=== PATIENT | male | born 1985 | race Caucasian/White ===

== ENCOUNTER 2021-06-29 22:34 | Emergency (ER) | payer OTHER ==
[~2021-06-29] VITALS: Ht 177.8 cm; Wt 79.4 kg
[2021-06-29 22:34] VITALS: BP_SYST 157
--- NOTE | 2021-06-29 23:07 | NUR ---
Placed in room 08 . Placed on cardiac monitor technician, blood pressure machine and pulse oximeter. To gown for exam. Side rails up. Report given to HEBERT Caballero
--- NOTE | 2021-06-29 23:30 | NUR ---
Dr. Tan present in room.
[2021-06-29] MEDS ORDERED: MAG HYDROX/AL HYDROX/SIMETH 30 ML, LIDOCAINE VISCOUS 2% 15ML (PO) 15 ML, DICYCLOMINE HC... PO ONE ×3 (23:45)
[2021-06-29] MEDS ORDERED: PANTOPRAZOLE SODIUM 40 MG/VIAL (PROTONIX) IV ONE (23:45)
[2021-06-29] MEDS ORDERED: NACL 0.9% 1,000 ML IV ONE (23:45)
[2021-06-29] MEDS ORDERED: MORPHINE SULFATE 10 MG/ML VIAL IVP ONE (23:45)
[2021-06-29] MEDS ORDERED: ONDANSETRON HCL 4 MG/2 ML VIAL IVP ONE ×2 (23:45)
[2021-06-30 00:19] LABS: CREATININE 1.45 mg/dL (0.55-1.30); POTASSIUM 4.2 mmol/L (3.5-5.1)
[2021-06-30 00:24] LABS: ALBUMIN 4.7 g/dL (3.4-4.8); TOTAL BILIRUBIN 0.7 mg/dL (0.0-1.0)
[2021-06-30 00:29] LABS: CORRECTED WHITE BLOOD COUNT 6.7 K/uL (4.5-11.0); WHITE BLOOD COUNT (AUTO) 6.7 K/uL (4.8-10.8)
[2021-06-30 00:30] LABS: HEMOGLOBIN 15.1 g/dL (14.0-18.0); MEAN CORPUSCULAR HEMOGLOBIN 29 pg (27-31); MEAN CORPUSCULAR HGB CONC 34 % (32-36); MEAN CORPUSCULAR VOLUME 84 fL (79.0-98.0); PLATELET COUNT (AUTO) 340 K/uL (130-430); RED BLOOD CELL COUNT(AUTO) 5.22 MIL/uL (4.2-6.2); RED CELL DISTRIBUTION WIDTH 12.8 % (9.0-15.0)
[2021-06-30 00:31] LABS: BASOPHILS % (AUTO) 1.9 % (0.0-2.0); EOSINOPHILS % (AUTO) 0.3 % (0.0-4.0); LYMPHOCYTES % (AUTO) 13.4 % (20.5-51.5); MONOCYTES % (AUTO) 3.6 % (1.7-9.3); NEUTROPHILS % (AUTO) 80.8 % (40.0-70.0)
[2021-06-30 00:32] LABS: NEUTROPHILS # (AUTO) 5.4 K/uL (1.8-7.7)
[2021-06-30 00:33] LABS: BASOPHILS # (AUTO) 0.1 K/uL (0.0-0.2); LYMPHOCYTES # (AUTO) 0.9 K/uL (1.0-5.5); MONOCYTES # (AUTO) 0.2 K/uL (0.0-1.0)
[2021-06-30 01:30] VITALS: BP_SYST 129
[2021-06-30] MEDS ORDERED: METO-290 PO (02:05)
[2021-06-30] MEDS ORDERED: ANT30 PO (02:05)
[2021-06-30] MEDS ORDERED: DICY10CA13 PO (02:05)
[2021-06-30] MEDS ORDERED: PRO40 PO (02:05)
[2021-06-30] MEDS ORDERED: POLY17PO4 PO (02:05)
--- NOTE | 2021-06-30 02:10 | NUR ---
Patient given written and verbal discharge instructions and verbalizes understanding. ER MD discussed with patient the results and treatment provided. Patient in stable condition. ID arm band removed. IV catheter removed intact and dressing applied, no active bleeding. Rx of dicyclomine, mylanta plus, metoclopramide, polyethylene, and protonix given. Patient educated on pain management and to follow up with PMD. Opportunity for questions provided and answered. Medication side effect fact sheet provided.
== END 2021-06-30 02:10 | disposition home or self-care (01) ==
LOC: SED 22:34
DX: R10.10 Upper abdominal pain, unspecified (principal); Z79.899 Other long term (current) drug therapy
CPT/HCPCS: 36415; 74021; 80053; 83690; 85025; 96361; 96374; 96375; 99285; C9113; J2001; J2270; J2405; J7030

== ENCOUNTER 2022-07-19 21:29 | Emergency (ER) | payer BC, OTHER ==
[~2022-07-19] VITALS: Ht 177.8 cm; Wt 95.3 kg
[~2022-07-19 21:29] MED LIST: ANT30 PO; DICY10CA13 PO; METO-290 PO; POLY17PO4 PO; PRO40 PO
[2022-07-19 21:56] VITALS: BP_SYST 155
--- NOTE | 2022-07-19 21:56 | NUR ---
Patient to ER bed 4 to gown for evaluation. Side rails up. Report given to MIKO AMBROSIO(LJ).
[2022-07-19 22:24] LABS: BASOPHILS # (AUTO) 0.1 K/uL (0.0-0.2); BASOPHILS % (AUTO) 0.4 % (0.0-2.0); HEMATOCRIT 49.2 % (36-54); HEMOGLOBIN 16.6 g/dL (14.0-18.0); LYMPHOCYTES % (AUTO) 10.2 % (20.5-51.5); MEAN CORPUSCULAR HEMOGLOBIN 29 pg (27-31); MEAN CORPUSCULAR HGB CONC 34 % (32-36); MEAN CORPUSCULAR VOLUME 86 fL (79.0-98.0); MONOCYTES # (AUTO) 0.9 K/uL (0.0-1.0); MONOCYTES % (AUTO) 4.5 % (1.7-9.3); NEUTROPHILS # (AUTO) 16.2 K/uL (1.8-7.7); NEUTROPHILS % (AUTO) 84.9 % (40.0-70.0); PLATELET COUNT (AUTO) 424 K/uL (130-430); RED BLOOD CELL COUNT(AUTO) 5.74 MIL/uL (4.2-6.2); RED CELL DISTRIBUTION WIDTH 13.4 % (9.0-15.0); WHITE BLOOD COUNT (AUTO) 19.1 K/uL (4.8-10.8)
[2022-07-19 22:28] LABS: CALCIUM 10.9 mg/dL (8.4-11.0); CREATININE 1.59 mg/dL (0.55-1.30)
--- NOTE | 2022-07-19 22:30 | NUR ---
PT MEDICATED PER ORDER. HE STATES THIS IS A PROBLEM HE'S HAD BEFORE AND ONLY MOPHINE CAN HELP RESOLVE IT. INFORMED. NO NEW ORDERS AT THIS TIME.
[2022-07-19 22:32] LABS: ALBUMIN 5.3 g/dL (3.4-4.8); TOTAL BILIRUBIN 1.1 mg/dL (0.0-1.0)
[2022-07-19] MEDS ORDERED: NACL 0.9% 1,000 ML IV ONE (22:45)
[2022-07-19] MEDS ORDERED: ONDANSETRON HCL 4 MG/2 ML VIAL IVP ONE (22:45)
[2022-07-19] MEDS ORDERED: HALOPERIDOL LACTATE 5 MG/ML VIAL IVP ONE (22:45)
[2022-07-19 23:02] VITALS: BP_SYST 152
--- NOTE | 2022-07-19 23:27 | NUR ---
PT STATES HE WANTS TO LEAVE AMA. INFORMED AND AMA FORM SIGNED.
[2022-07-19 23:52] LABS: BILIRUBIN,URINE 1+ (NEGATIVE); BLOOD, URINE NEGATIVE (NEGATIVE); CLARITY/URINE CLOUDY (CLEAR); COLOR,URINE YELLOW (YELLOW); GLUCOSE,URINE NEGATIVE (NEGATIVE); KETONES,URINE TRACE (NEGATIVE); LEUKOCYTE ESTERASE ,URINE NEGATIVE (NEGATIVE); NITRITE, URINE NEGATIVE (NEGATIVE); PH,URINE 5.5 (5.0-8.0); PROTEIN URINE 3+ (NEGATIVE)
[2022-07-19 23:59] LABS: BACTERIA,URINE None Seen /HPF (None Seen); RBC,URINE 0-3 /HPF (0-3); WBC,URINE 0-3 /HPF (0-3)
--- NOTE | 2022-07-19 23:59 | NUR ---
Patient does not wish to proceed with medical care recommended by . Patient given information related to possible complications, up to and including , which could occur as a result of leaving hospital at this time. Patient verbalizes understanding of risks involved leaving against medical advice. Patient has signed AMA form.
[2022-07-20] LABS: MUCUS,URINE 2+ /LPF (None Seen)
== END 2022-07-19 23:30 | disposition left against medical advice (07) ==
LOC: SED 21:29
DX: K31.84 Gastroparesis (principal); R10.9 Unspecified abdominal pain; R11.2 Nausea with vomiting, unspecified; Z79.899 Other long term (current) drug therapy
CPT/HCPCS: 99284; 96374; 96361; 96375; 80053; 81000; 83690; 85025; 36415; J1630; J2405; J7030

== ENCOUNTER 2022-10-29 15:10 | Inpatient (IN) | payer SELFPAY ==
[~2022-10-29] VITALS: Ht 177.8 cm; Wt 95.3 kg
[2022-10-29 15:24] VITALS: BP_SYST 163; PULSE 111; RESP 18; TEMP 97.8; O2SAT 96
[2022-10-29] MEDS ORDERED: KETOROLAC TROMETHAMINE 30 MG VIAL IVP ONE (15:30)
[2022-10-29] MEDS ORDERED: PANTOPRAZOLE SODIUM 40 MG/VIAL (PROTONIX) IVP ONE (15:30)
[2022-10-29] MEDS ORDERED: ONDANSETRON HCL 4 MG/2 ML VIAL IVP ONE ×2 (15:30→17:00)
[2022-10-29] MEDS ORDERED: NACL 0.9% 1,000 ML IV ONE ×3 (15:30→22:45)
[2022-10-29 16:27] LABS: BASOPHILS % (AUTO) 0.1 % (0.0-2.0); HEMATOCRIT 52.7 % (36-54); HEMOGLOBIN 18.1 g/dL (14.0-18.0); LYMPHOCYTES # (AUTO) 1.4 K/uL (1.0-5.5); LYMPHOCYTES % (AUTO) 7.4 % (20.5-51.5); MEAN CORPUSCULAR HEMOGLOBIN 29 pg (27-31); MEAN CORPUSCULAR HGB CONC 34 % (32-36); MEAN CORPUSCULAR VOLUME 84 fL (79.0-98.0); MONOCYTES # (AUTO) 1.4 K/uL (0.0-1.0); NEUTROPHILS # (AUTO) 16.7 K/uL (1.8-7.7); NEUTROPHILS % (AUTO) 85.5 % (40.0-70.0); PLATELET COUNT (AUTO) 478 K/uL (130-430); RED BLOOD CELL COUNT(AUTO) 6.25 MIL/uL (4.2-6.2); WHITE BLOOD COUNT (AUTO) 19.6 K/uL (4.8-10.8)
[2022-10-29 16:45] LABS: ALBUMIN 5.5 g/dL (3.4-4.8); CREATININE 6.15 mg/dL (0.55-1.30); POTASSIUM 3.6 mmol/L (3.5-5.1); TOTAL BILIRUBIN 0.6 mg/dL (0.0-1.0); TOTAL PROTEIN, SERUM 9.4 g/dL (6.4-8.3)
[2022-10-29] MEDS ORDERED: cloNIDine HCL 0.2 MG TABLET PO ONE (16:45)
[2022-10-29] MEDS ORDERED: cloNIDine HCL 0.1 MG TABLET PO ONE (16:45)
[2022-10-29] MEDS ORDERED: MORPHINE 4 MG INJ. 4 MG/ML VIAL IVP ONE (17:00)
[2022-10-29 18:19] LABS: BILIRUBIN,URINE NEGATIVE (NEGATIVE); CLARITY/URINE CLOUDY (CLEAR); COLOR,URINE YELLOW (YELLOW); GLUCOSE,URINE NEGATIVE (NEGATIVE); KETONES,URINE NEGATIVE (NEGATIVE); LEUKOCYTE ESTERASE ,URINE NEGATIVE (NEGATIVE); NITRITE, URINE NEGATIVE (NEGATIVE); PROTEIN URINE 2+ (NEGATIVE); UROBILINOGEN,URINE 0.2 (0.2-1.0)
[2022-10-29 18:20] LABS: BLOOD, URINE TRACE (NEGATIVE)
[2022-10-29 18:37] LABS: BACTERIA,URINE FEW /HPF (None Seen); RBC,URINE 0-3 /HPF (0-3)
[2022-10-29 18:38] LABS: CALCIUM OXALATE CRYSTALS,UR 0-10 /HPF (None Seen); COARSE GRANULAR CASTS,URINE 0-10 /LPF (None Seen); FINE GRANULAR CASTS,URINE 0-10 /LPF (None Seen); MUCUS,URINE 2+ /LPF (None Seen)
[2022-10-29 18:48] LABS: BARBITURATE, URINE NEGATIVE (NEG <=200); URINE AMPHETAMINE NEGATIVE (NEG <=500)
[2022-10-29 18:49] LABS: BENZODIAZEPINE, URINE NEGATIVE (NEG <=150); CANNABINOID, URINE NEGATIVE (NEG <=50); COCAINE, URINE NEGATIVE (NEG <=150); METHAMPHETAMINES SCREEN,URINE NEGATIVE (NEG <=500); OPIATE, URINE POSITIVE (NEG <=100); PHENCYCLIDINE SCREEN,URINE NEGATIVE (NEG <=25); UR TRICYCLIC ANTIDEPRESSANTS NEGATIVE (NEG <=300); URINE METHADONE NEGATIVE (NEG <=200); URINE OXYCODONE SCREEN NEGATIVE (NEG <=100); URINE PROPOXYPHENE SCREEN NEGATIVE (NEG <=300)
[2022-10-29] MEDS ORDERED: cefTRIAXone 1 GM VIAL ONE (19:14)
[2022-10-29] MEDS ORDERED: cefTRIAXone 1 GM in D5W 50 ML IV ONE (19:15)
[2022-10-29] MEDS ORDERED: ESCI20TA PO (20:37)
[2022-10-29] MEDS ORDERED: ARIP5TAB10 PO (20:37)
[2022-10-29] MEDS ORDERED: ONDANSETRON HCL 4 MG/2 ML VIAL IVP PRN (20:45)
[2022-10-29 21:45] VITALS: BP_SYST 98; PULSE 67; PULSE 76; RESP 20; TEMP 98; O2SAT 98
[2022-10-29] MEDS: MORPHINE 4 MG INJ. 4 MG/ML VIAL IVP PRN (22:16)
[2022-10-29] MEDS ORDERED: NACL 0.9% 1,000 ML IV SCH (22:30)
[2022-10-29] MEDS ORDERED: cloNIDine HCL 0.1 MG TABLET PO PRN (22:30)
[2022-10-29] MEDS ORDERED: PIPERACILLIN/TAZOBACTAM 2.25 GM VIAL IV ONE (22:52)
[2022-10-29 23:36] LABS: CALCIUM 8.9 mg/dL (8.4-11.0); CREATININE 4.84 mg/dL (0.55-1.30); POTASSIUM 4.7 mmol/L (3.5-5.1)
[2022-10-30] VITALS: BP_SYST 121; PULSE 61; RESP 20; TEMP 98; O2SAT 98
[2022-10-30] MEDS ORDERED: PIPERACILLIN/TAZO 3.375/DEX-IS 50 ML IV SCH
[2022-10-30] MEDS ORDERED: PIPERACILLIN/TAZO 2.25G/DEX-IS 50 ML IV SCH
[2022-10-30] MEDS ORDERED: TEMAZEPAM 15 MG CAPSULE PO PRN (00:15)
[2022-10-30] MEDS ORDERED: SODIUM BICARBONATE 8.4% JECT 50 MEQ/50 ML SYRINGE ONE ×2 (01:05→01:29)
[2022-10-30] MEDS: SODIUM BICARBONATE 8.4% JECT 100 MEQ in D5W 1,000 ML IVP SCH ×3 (01:38→15:43)
[2022-10-30] MEDS: MORPHINE 4 MG INJ. 4 MG/ML VIAL IVP PRN ×5 (02:40→20:46)
[2022-10-30 07:18] LABS: CKMB RELATIVE INDEX 0.6 (0.0-2.9); CREATINE KINASE MB 8.3 ng/mL (0-3.6)
[2022-10-30 08:04] VITALS: BP_SYST 126; PULSE 71; RESP 20; TEMP 97.1; O2SAT 96
[2022-10-30] MEDS: PANTOPRAZOLE SODIUM 40 MG TAB PO SCH ×2 (09:06→20:45)
[2022-10-30 11:02] LABS: BASOPHILS % (AUTO) 0.3 % (0.0-2.0); EOSINOPHILS % (AUTO) 0.3 % (0.0-4.0); HEMATOCRIT 36.7 % (36-54); HEMOGLOBIN 12.5 g/dL (14.0-18.0); LYMPHOCYTES # (AUTO) 2.7 K/uL (1.0-5.5); LYMPHOCYTES % (AUTO) 32.3 % (20.5-51.5); MEAN CORPUSCULAR HEMOGLOBIN 29 pg (27-31); MEAN CORPUSCULAR HGB CONC 34 % (32-36); MEAN CORPUSCULAR VOLUME 85 fL (79.0-98.0); MONOCYTES # (AUTO) 0.9 K/uL (0.0-1.0); MONOCYTES % (AUTO) 10.1 % (1.7-9.3); NEUTROPHILS # (AUTO) 4.8 K/uL (1.8-7.7); PLATELET COUNT (AUTO) 259 K/uL (130-430); RED BLOOD CELL COUNT(AUTO) 4.29 MIL/uL (4.2-6.2); RED CELL DISTRIBUTION WIDTH 13.1 % (9.0-15.0); WHITE BLOOD COUNT (AUTO) 8.5 K/uL (4.8-10.8)
[2022-10-30 11:05] VITALS: BP_SYST 130; PULSE 52; RESP 18; TEMP 97; O2SAT 100
[2022-10-30 11:45] LABS: CALCIUM 7.9 mg/dL (8.4-11.0); CREATININE 2.41 mg/dL (0.55-1.30); POTASSIUM 3.5 mmol/L (3.5-5.1)
[2022-10-30 12:09] LABS: CKMB RELATIVE INDEX 0.4 (0.0-2.9)
[2022-10-30] MEDS ORDERED: traMADol HCL HCL 50 MG TABLET (ULTRAM) PO ONE (12:45)
[2022-10-30] MEDS ORDERED: POTASSIUM CHLORIDE 20 MEQ TAB.PRT.SR PO ONE (12:45)
[2022-10-30 15:59] VITALS: BP_SYST 130; PULSE 76; RESP 18; TEMP 96.8; O2SAT 1
[2022-10-30] MEDS: traMADol HCL HCL 50 MG TABLET (ULTRAM) PO SCH (18:37)
[2022-10-30] MEDS ORDERED: cefTRIAXone 1 GM in D5W 50 ML IV SCH (19:00)
[2022-10-30 20:05] VITALS: BP_SYST 122; PULSE 53; RESP 16; TEMP 97.6; O2SAT 97
[2022-10-31 00:12] VITALS: BP_SYST 125; PULSE 66; RESP 16; TEMP 97.2; O2SAT 100
[2022-10-31] MEDS: SODIUM BICARBONATE 8.4% JECT 100 MEQ in D5W 1,000 ML IVP SCH ×3 (00:39→12:40)
[2022-10-31] MEDS: traMADol HCL HCL 50 MG TABLET (ULTRAM) PO SCH ×3 (00:39→13:44)
[2022-10-31 06:54] LABS: BASOPHILS % (AUTO) 0.4 % (0.0-2.0); EOSINOPHILS # (AUTO) 0.1 K/uL (0.0-0.4); EOSINOPHILS % (AUTO) 0.8 % (0.0-4.0); HEMATOCRIT 39.8 % (36-54); HEMOGLOBIN 13.4 g/dL (14.0-18.0); LYMPHOCYTES # (AUTO) 3.7 K/uL (1.0-5.5); LYMPHOCYTES % (AUTO) 44.1 % (20.5-51.5); MEAN CORPUSCULAR HEMOGLOBIN 29 pg (27-31); MEAN CORPUSCULAR HGB CONC 34 % (32-36); MEAN CORPUSCULAR VOLUME 86 fL (79.0-98.0); MONOCYTES # (AUTO) 0.8 K/uL (0.0-1.0); MONOCYTES % (AUTO) 9.6 % (1.7-9.3); NEUTROPHILS # (AUTO) 3.8 K/uL (1.8-7.7); NEUTROPHILS % (AUTO) 45.1 % (40.0-70.0); PLATELET COUNT (AUTO) 269 K/uL (130-430); RED BLOOD CELL COUNT(AUTO) 4.65 MIL/uL (4.2-6.2); RED CELL DISTRIBUTION WIDTH 13.2 % (9.0-15.0); WHITE BLOOD COUNT (AUTO) 8.4 K/uL (4.8-10.8)
[2022-10-31 07:41] LABS: CALCIUM 8.3 mg/dL (8.4-11.0); CREATININE 1.4 mg/dL (0.55-1.30)
[2022-10-31 08:04] LABS: CKMB RELATIVE INDEX 0.2 (0.0-2.9); CREATINE KINASE MB 3.6 ng/mL (0-3.6)
[2022-10-31 08:35] VITALS: BP_SYST 144; PULSE 70; RESP 16; TEMP 97.2; O2SAT 99
[2022-10-31] MEDS: PANTOPRAZOLE SODIUM 40 MG TAB PO SCH (09:59)
[2022-10-31 11:30] VITALS: BP_SYST 133; PULSE 69; RESP 17; TEMP 98.5; O2SAT 98
[2022-10-31 17:30] VITALS: BP_SYST 134; PULSE 61; RESP 18; TEMP 97.8; O2SAT 99
== END 2022-10-31 17:39 | disposition left against medical advice (07) | DRG 682 ==
LOC: SED 15:10 → STU 20:31 → SMU 10-30 12:45
PROVIDERS: ADMIT Internal Medicine; ATTEND Internal Medicine
DX: N17.9 Acute kidney failure, unspecified (principal); R65.11 Systemic inflammatory response syndrome (SIRS) of non-infectious origin with acute organ dysfunction; M62.82 Rhabdomyolysis; N39.0 Urinary tract infection, site not specified; E87.1 Hypo-osmolality and hyponatremia; E72.53 Primary hyperoxaluria; F32.A Depression, unspecified; E86.0 Dehydration; I10 Essential (primary) hypertension; R11.10 Vomiting, unspecified; D72.829 Elevated white blood cell count, unspecified; F12.90 Cannabis use, unspecified, uncomplicated; Z53.29 Procedure and treatment not carried out because of patient's decision for other reasons; F10.20 Alcohol dependence, uncomplicated; Y90.9 Presence of alcohol in blood, level not specified; Z79.899 Other long term (current) drug therapy
CPT/HCPCS: 36415; 71045; 76376; 76770; 80048; 80053; 80307; 81000; 82550; 82553; 83605; 83690; 85025; 87040; 93005; 99285; C9113; G0378; J0696; J1885; J1956; J2270; J2405; J2543; J7030; J7060

== ENCOUNTER 2022-11-02 00:12 | Emergency (ER) | payer SELFPAY ==
[~2022-11-02] VITALS: Ht 177.8 cm; Wt 95.3 kg
[~2022-11-02 00:12] MED LIST changes: -ANT30 PO; +ARIP5TAB10 PO; -DICY10CA13 PO; +ESCI20TA PO; -METO-290 PO; -POLY17PO4 PO; -PRO40 PO
[2022-11-02 00:39] VITALS: BP_SYST 197; PULSE 108; RESP 22; TEMP 97.2; O2SAT 96
[2022-11-02] MEDS ORDERED: MORPHINE 4 MG INJ. 4 MG/ML VIAL IVP ONE ×2 (01:00→01:30)
[2022-11-02] MEDS ORDERED: ONDANSETRON HCL 4 MG/2 ML VIAL IVP ONE (01:00)
[2022-11-02] MEDS ORDERED: NACL 0.9% 1,000 ML IV ONE ×2 (01:00→04:00)
[2022-11-02 01:49] LABS: BASOPHILS % (AUTO) 0.3 % (0.0-2.0); EOSINOPHILS % (AUTO) 0.2 % (0.0-4.0); HEMATOCRIT 41.3 % (36-54); HEMOGLOBIN 14.3 g/dL (14.0-18.0); LYMPHOCYTES # (AUTO) 1.4 K/uL (1.0-5.5); LYMPHOCYTES % (AUTO) 18.9 % (20.5-51.5); MEAN CORPUSCULAR HEMOGLOBIN 29 pg (27-31); MEAN CORPUSCULAR HGB CONC 35 % (32-36); MEAN CORPUSCULAR VOLUME 85 fL (79.0-98.0); MONOCYTES # (AUTO) 0.5 K/uL (0.0-1.0); MONOCYTES % (AUTO) 7.1 % (1.7-9.3); NEUTROPHILS # (AUTO) 5.3 K/uL (1.8-7.7); NEUTROPHILS % (AUTO) 73.5 % (40.0-70.0); PLATELET COUNT (AUTO) 283 K/uL (130-430); RED BLOOD CELL COUNT(AUTO) 4.89 MIL/uL (4.2-6.2); RED CELL DISTRIBUTION WIDTH 13.3 % (9.0-15.0); WHITE BLOOD COUNT (AUTO) 7.3 K/uL (4.8-10.8)
[2022-11-02 02:23] LABS: CALCIUM 8.7 mg/dL (8.4-11.0); CREATININE 1.12 mg/dL (0.55-1.30); POTASSIUM 4.1 mmol/L (3.5-5.1); TOTAL BILIRUBIN 0.9 mg/dL (0.0-1.0); TOTAL PROTEIN, SERUM 6.7 g/dL (6.4-8.3)
[2022-11-02] MEDS ORDERED: HALOPERIDOL LACTATE 5 MG/ML VIAL IVP ONE (03:30)
[2022-11-02] MEDS ORDERED: DIPHENHYDRAMINE INJ 50 MG/ML VIAL IVP ONE (03:30)
[2022-11-02 03:38] LABS: BILIRUBIN,URINE 1+ (NEGATIVE); BLOOD, URINE NEGATIVE (NEGATIVE); CLARITY/URINE CLEAR (CLEAR); COLOR,URINE YELLOW (YELLOW); GLUCOSE,URINE 1+ (NEGATIVE); KETONES,URINE 3+ (NEGATIVE); LEUKOCYTE ESTERASE ,URINE NEGATIVE (NEGATIVE); NITRITE, URINE NEGATIVE (NEGATIVE); PROTEIN URINE NEGATIVE (NEGATIVE); UROBILINOGEN,URINE 0.2 (0.2-1.0)
[2022-11-02 03:59] LABS: BARBITURATE, URINE NEGATIVE (NEG <=200); BENZODIAZEPINE, URINE POSITIVE (NEG <=150); CANNABINOID, URINE POSITIVE (NEG <=50); COCAINE, URINE NEGATIVE (NEG <=150); METHAMPHETAMINES SCREEN,URINE NEGATIVE (NEG <=500); OPIATE, URINE POSITIVE (NEG <=100); PHENCYCLIDINE SCREEN,URINE NEGATIVE (NEG <=25); URINE AMPHETAMINE NEGATIVE (NEG <=500); URINE METHADONE NEGATIVE (NEG <=200); URINE OXYCODONE SCREEN NEGATIVE (NEG <=100); URINE PROPOXYPHENE SCREEN NEGATIVE (NEG <=300)
[2022-11-02 04:00] LABS: UR TRICYCLIC ANTIDEPRESSANTS NEGATIVE (NEG <=300)
[2022-11-02 04:49] VITALS: BP_SYST 142; PULSE 64; RESP 18; TEMP 98.3; O2SAT 98
== END 2022-11-02 05:30 | disposition home or self-care (01) ==
LOC: SED 00:12
DX: R11.15 Cyclical vomiting syndrome unrelated to migraine (principal); F12.90 Cannabis use, unspecified, uncomplicated; R10.9 Unspecified abdominal pain; Z79.899 Other long term (current) drug therapy
CPT/HCPCS: 99285; 74176; 96374; 96361; 96375; 80307; 80053; 85025; 36415; 76376; 96376; 81003; J1200; J1630; J2405; J2270; J7030

== ENCOUNTER 2022-11-09 11:21 | Emergency (ER) | payer SELFPAY ==
[~2022-11-09] VITALS: Ht 177.8 cm; Wt 95.3 kg
[2022-11-09 11:42] VITALS: BP_SYST 147; PULSE 72; RESP 16; TEMP 98; O2SAT 97
[2022-11-09 12:02] LABS: BASOPHILS % (AUTO) 0.3 % (0.0-2.0); EOSINOPHILS % (AUTO) 0.2 % (0.0-4.0); HEMATOCRIT 44.3 % (36-54); LYMPHOCYTES # (AUTO) 2.1 K/uL (1.0-5.5); LYMPHOCYTES % (AUTO) 19.6 % (20.5-51.5); MEAN CORPUSCULAR HEMOGLOBIN 29 pg (27-31); MEAN CORPUSCULAR HGB CONC 34 % (32-36); MEAN CORPUSCULAR VOLUME 85 fL (79.0-98.0); MONOCYTES # (AUTO) 0.8 K/uL (0.0-1.0); MONOCYTES % (AUTO) 7.3 % (1.7-9.3); NEUTROPHILS # (AUTO) 7.7 K/uL (1.8-7.7); NEUTROPHILS % (AUTO) 72.6 % (40.0-70.0); PLATELET COUNT (AUTO) 356 K/uL (130-430); RED BLOOD CELL COUNT(AUTO) 5.19 MIL/uL (4.2-6.2); RED CELL DISTRIBUTION WIDTH 13.5 % (9.0-15.0); WHITE BLOOD COUNT (AUTO) 10.6 K/uL (4.8-10.8)
[2022-11-09 12:22] LABS: CALCIUM 8.8 mg/dL (8.4-11.0); CREATININE 1.13 mg/dL (0.55-1.30); POTASSIUM 4.2 mmol/L (3.5-5.1)
[2022-11-09 12:26] LABS: ALBUMIN 4.3 g/dL (3.4-4.8); TOTAL BILIRUBIN 0.7 mg/dL (0.0-1.0); TOTAL PROTEIN, SERUM 7.6 g/dL (6.4-8.3)
[2022-11-09 12:56] LABS: BILIRUBIN,URINE NEGATIVE (NEGATIVE); BLOOD, URINE NEGATIVE (NEGATIVE); CLARITY/URINE CLEAR (CLEAR); COLOR,URINE YELLOW (YELLOW); GLUCOSE,URINE NEGATIVE (NEGATIVE); KETONES,URINE 1+ (NEGATIVE); LEUKOCYTE ESTERASE ,URINE NEGATIVE (NEGATIVE); NITRITE, URINE NEGATIVE (NEGATIVE); PROTEIN URINE TRACE (NEGATIVE); UROBILINOGEN,URINE 0.2 (0.2-1.0)
[2022-11-09 13:16] LABS: BACTERIA,URINE RARE /HPF (None Seen); RBC,URINE NONE SEEN /HPF (0-3); WBC,URINE 0-3 /HPF (0-3)
[2022-11-09] MEDS ORDERED: CEPH-548 PO (13:33)
[2022-11-09 14:08] VITALS: BP_SYST 133; PULSE 68; RESP 16; TEMP 98; O2SAT 98
== END 2022-11-09 14:03 | disposition home or self-care (01) ==
LOC: SED 11:21
DX: N39.0 Urinary tract infection, site not specified (principal); R10.32 Left lower quadrant pain; Z79.899 Other long term (current) drug therapy
CPT/HCPCS: 36415; 80053; 81000; 83690; 85025; 99283

== ENCOUNTER 2022-12-26 10:51 | Inpatient (IN) | payer BC ==
[~2022-12-26] VITALS: Ht 177.8 cm; Wt 90.7 kg
[~2022-12-26 10:51] MED LIST changes: +CEPH-548 PO
[2022-12-26 11:10] VITALS: BP_SYST 141; PULSE 78; RESP 18; TEMP 98; O2SAT 97
[2022-12-26] MEDS ORDERED: ONDANSETRON HCL 4 MG/2 ML VIAL IVP ONE (11:15)
[2022-12-26] MEDS ORDERED: MORPHINE 2 MG/ML INJ. SYRINGE IVP ONE (11:15)
[2022-12-26 11:50] LABS: BASOPHILS % (AUTO) 0.2 % (0.0-2.0); CALCIUM 8.7 mg/dL (8.4-11.0); CREATININE 1.04 mg/dL (0.55-1.30); HEMATOCRIT 43.4 % (36-54); HEMOGLOBIN 14.9 g/dL (14.0-18.0); LYMPHOCYTES # (AUTO) 1.8 K/uL (1.0-5.5); LYMPHOCYTES % (AUTO) 13.9 % (20.5-51.5); MEAN CORPUSCULAR HEMOGLOBIN 29 pg (27-31); MEAN CORPUSCULAR HGB CONC 35 % (32-36); MEAN CORPUSCULAR VOLUME 85 fL (79.0-98.0); MONOCYTES # (AUTO) 0.8 K/uL (0.0-1.0); MONOCYTES % (AUTO) 6.3 % (1.7-9.3); NEUTROPHILS # (AUTO) 10.5 K/uL (1.8-7.7); NEUTROPHILS % (AUTO) 79.6 % (40.0-70.0); PLATELET COUNT (AUTO) 385 K/uL (130-430); POTASSIUM 3.5 mmol/L (3.5-5.1); RED BLOOD CELL COUNT(AUTO) 5.09 MIL/uL (4.2-6.2); RED CELL DISTRIBUTION WIDTH 13.3 % (9.0-15.0); WHITE BLOOD COUNT (AUTO) 13.1 K/uL (4.8-10.8)
[2022-12-26 11:54] LABS: ALBUMIN 4.2 g/dL (3.4-4.8); TOTAL BILIRUBIN 0.8 mg/dL (0.0-1.0); TOTAL PROTEIN, SERUM 7.6 g/dL (6.4-8.3)
[2022-12-26 12:30] LABS: BILIRUBIN,URINE 1+ (NEGATIVE); BLOOD, URINE NEGATIVE (NEGATIVE); CLARITY/URINE TURBID (CLEAR); COLOR,URINE YELLOW (YELLOW); GLUCOSE,URINE NEGATIVE (NEGATIVE); KETONES,URINE NEGATIVE (NEGATIVE); LEUKOCYTE ESTERASE ,URINE NEGATIVE (NEGATIVE); NITRITE, URINE POSITIVE (NEGATIVE); PH,URINE 5.5 (5.0-8.0); PROTEIN URINE 1+ (NEGATIVE); UROBILINOGEN,URINE 0.2 (0.2-1.0)
[2022-12-26 13:10] LABS: BACTERIA,URINE FEW /HPF (None Seen); RBC,URINE 0-3 /HPF (0-3); WBC,URINE 0-3 /HPF (0-3)
[2022-12-26 13:11] LABS: CALCIUM OXALATE CRYSTALS,UR None Seen /HPF (None Seen); CALCIUM PHOSPHATE CRYSTALS,UR None Seen /HPF (None Seen); OTHER CRYSTALS,URINE None Seen /HPF (None Seen); TRICHOMONAS,URINE None Seen /HPF (None Seen); TRIPLE PHOSPHATE CRYSTAL,UR None Seen /HPF (None Seen); URIC ACID CRYSTALS,URINE None Seen /HPF (None Seen); URINE AMORPHOUS URATE 4+ /HPF (None Seen); YEAST,URINE None Seen /HPF (None Seen)
[2022-12-26] MEDS ORDERED: MAGNESIUM SULFATE 50 ML IV PRN (13:15)
[2022-12-26] MEDS ORDERED: POTASSIUM CHLORIDE 20 MEQ TAB.PRT.SR PO PRN (13:15)
[2022-12-26] MEDS ORDERED: HYDROmorphone 1 MG/ML INJ. CARTRIDGE IVP ONE (13:15)
[2022-12-26] MEDS ORDERED: ACETAMINOPHEN 325 MG TABLET PO PRN (13:15)
[2022-12-26] MEDS ORDERED: ZOLPIDEM TARTRATE 5 MG TABLET PO PRN (13:15)
[2022-12-26] MEDS ORDERED: LORazepam 2 MG/ML VIAL IVP PRN (13:15)
[2022-12-26] MEDS ORDERED: ONDANSETRON HCL 4 MG/2 ML VIAL IVP PRN (13:15)
[2022-12-26] MEDS ORDERED: MUPIROCIN 2% TOPICAL OINTMENT 22 GM NS PRN (13:15)
[2022-12-26] MEDS ORDERED: MORPHINE 2 MG/ML INJ. SYRINGE IVP PRN (13:15)
[2022-12-26] MEDS ORDERED: DOCUSATE SODIUM 100 MG CAPSULE PO PRN (13:15)
[2022-12-26] MEDS ORDERED: metroNIDAZOLE 500 mg/NS 100 ML IV ONE ×2 (14:00→17:03)
[2022-12-26] MEDS: MORPHINE 2 MG/ML INJ. SYRINGE IVP PRN ×2 (15:26→17:06)
[2022-12-26] MEDS: D5NS 1,000 ML IV SCH ×2 (17:07→23:15)
[2022-12-26] MEDS ORDERED: HYDROmorphone 2 MG/ML VIAL IVP PRN (18:15)
[2022-12-26 18:30] VITALS: BP_SYST 170; PULSE 66; RESP 18; TEMP 97.8; O2SAT 97
[2022-12-26 20:00] VITALS: BP_SYST 156; PULSE 75; RESP 20; TEMP 98.7; O2SAT 97
[2022-12-26] MEDS: metroNIDAZOLE 500 mg/NS 100 ML IV SCH (23:15)
[2022-12-27] VITALS: BP_SYST 135; PULSE 51; RESP 18; TEMP 97.7; O2SAT 99
[2022-12-27 00:38] VITALS: BP_SYST 156; PULSE 75; RESP 20; TEMP 98.7; O2SAT 97
[2022-12-27 06:09] LABS: BASOPHILS % (AUTO) 0.1 % (0.0-2.0); EOSINOPHILS % (AUTO) 0.2 % (0.0-4.0); HEMATOCRIT 39.7 % (36-54); HEMOGLOBIN 13.5 g/dL (14.0-18.0); LYMPHOCYTES % (AUTO) 29.8 % (20.5-51.5); MEAN CORPUSCULAR HEMOGLOBIN 29 pg (27-31); MEAN CORPUSCULAR HGB CONC 34 % (32-36); MEAN CORPUSCULAR VOLUME 86 fL (79.0-98.0); MONOCYTES # (AUTO) 1.1 K/uL (0.0-1.0); MONOCYTES % (AUTO) 10.6 % (1.7-9.3); NEUTROPHILS # (AUTO) 5.9 K/uL (1.8-7.7); NEUTROPHILS % (AUTO) 59.3 % (40.0-70.0); PLATELET COUNT (AUTO) 347 K/uL (130-430); RED BLOOD CELL COUNT(AUTO) 4.62 MIL/uL (4.2-6.2); RED CELL DISTRIBUTION WIDTH 13.4 % (9.0-15.0); WHITE BLOOD COUNT (AUTO) 9.9 K/uL (4.8-10.8)
[2022-12-27] MEDS: metroNIDAZOLE 500 mg/NS 100 ML IV SCH ×3 (07:01→23:27)
[2022-12-27 07:05] LABS: CREATININE 1.04 mg/dL (0.55-1.30); POTASSIUM 3.2 mmol/L (3.5-5.1)
[2022-12-27 08:30] VITALS: BP_SYST 141; PULSE 68; RESP 18; TEMP 98.1; O2SAT 98
[2022-12-27] MEDS ORDERED: POTASSIUM CHLORIDE 40 MEQ, LIDOCAINE JECT 2% PF 100 MG 50 MG in NS 250 ML IV ONE (08:30)
[2022-12-27] MEDS ORDERED: HYDROcodone/ACETAMIN 5-325 MG TAB (NORCO/ VICODIN) PO PRN (08:45)
[2022-12-27] MEDS ORDERED: ARIPiprazole 5 MG TAB PO SCH (09:00)
[2022-12-27] MEDS ORDERED: ESCITALOPRAM OXALATE 10 MG TABLET PO SCH (09:00)
[2022-12-27] MEDS: CITALOPRAM HYDROBROMIDE 20 MG TABLET PO SCH (09:16)
[2022-12-27] MEDS: D5NS 1,000 ML IV SCH (09:22)
[2022-12-27 10:15] VITALS: O2SAT 98
[2022-12-27] MEDS ORDERED: ARIPiprazole 2 MG TAB PO SCH (10:56)
[2022-12-27 16:03] LABS: BARBITURATE, URINE NEGATIVE (NEG <=200); METHAMPHETAMINES SCREEN,URINE NEGATIVE (NEG <=500); URINE AMPHETAMINE NEGATIVE (NEG <=500)
[2022-12-27 16:04] LABS: OPIATE, URINE POSITIVE (NEG <=100); UR TRICYCLIC ANTIDEPRESSANTS POSITIVE (NEG <=300)
[2022-12-27 16:05] LABS: BENZODIAZEPINE, URINE NEGATIVE (NEG <=150); CANNABINOID, URINE NEGATIVE (NEG <=50); COCAINE, URINE NEGATIVE (NEG <=150); PHENCYCLIDINE SCREEN,URINE NEGATIVE (NEG <=25); URINE METHADONE NEGATIVE (NEG <=200); URINE OXYCODONE SCREEN NEGATIVE (NEG <=100); URINE PROPOXYPHENE SCREEN NEGATIVE (NEG <=300)
[2022-12-27] MEDS: NACL 0.9% 1,000 ML IV SCH ×2 (17:12→17:13)
[2022-12-27 20:00] VITALS: BP_SYST 131; PULSE 53; RESP 18; TEMP 97.3; O2SAT 98
[2022-12-28 06:16] LABS: BASOPHILS % (AUTO) 0.2 % (0.0-2.0); EOSINOPHILS % (AUTO) 0.6 % (0.0-4.0); HEMATOCRIT 37.5 % (36-54); HEMOGLOBIN 12.7 g/dL (14.0-18.0); LYMPHOCYTES # (AUTO) 3.6 K/uL (1.0-5.5); LYMPHOCYTES % (AUTO) 52.1 % (20.5-51.5); MEAN CORPUSCULAR HEMOGLOBIN 29 pg (27-31); MEAN CORPUSCULAR HGB CONC 34 % (32-36); MEAN CORPUSCULAR VOLUME 86 fL (79.0-98.0); MONOCYTES # (AUTO) 0.6 K/uL (0.0-1.0); NEUTROPHILS # (AUTO) 2.6 K/uL (1.8-7.7); NEUTROPHILS % (AUTO) 38.1 % (40.0-70.0); PLATELET COUNT (AUTO) 288 K/uL (130-430); RED BLOOD CELL COUNT(AUTO) 4.36 MIL/uL (4.2-6.2); RED CELL DISTRIBUTION WIDTH 13.5 % (9.0-15.0); WHITE BLOOD COUNT (AUTO) 6.9 K/uL (4.8-10.8)
[2022-12-28 06:32] LABS: CALCIUM 8.6 mg/dL (8.4-11.0); CREATININE 0.97 mg/dL (0.55-1.30); POTASSIUM 3.9 mmol/L (3.5-5.1)
[2022-12-28] MEDS: metroNIDAZOLE 500 mg/NS 100 ML IV SCH (06:50)
[2022-12-28 08:00] VITALS: BP_SYST 114; PULSE 56; RESP 18; TEMP 97.5; O2SAT 98
[2022-12-28] MEDS ORDERED: LEVO-62 PO (08:30)
[2022-12-28] MEDS ORDERED: METR-154 PO (08:30)
[2022-12-28] MEDS: CITALOPRAM HYDROBROMIDE 20 MG TABLET PO SCH (10:21)
[2022-12-28 11:41] VITALS: BP_SYST 118; PULSE 70; RESP 19; TEMP 98.1; O2SAT 99
== END 2022-12-28 12:30 | disposition home or self-care (01) | DRG 872 ==
LOC: SED 10:51 → SMU 13:19
PROVIDERS: ADMIT General Practice; ATTEND General Practice
DX: A41.9 Sepsis, unspecified organism (principal); N39.0 Urinary tract infection, site not specified; F32.A Depression, unspecified; I10 Essential (primary) hypertension; E87.6 Hypokalemia
CPT/HCPCS: 36415; 76376; 80048; 80053; 80307; 81000; 83037; 83690; 83735; 85025; 87040; 87086; 96365; 96368; 96375; 96376; 99285; J1170; J1956; J2270; J2405; J3480; J3490; J7050; Q9967